=== PATIENT | male | born 1965 | race Caucasian/White ===

== ENCOUNTER 2016-11-21 19:41 | Emergency (ER) | payer OTHER ==
--- NOTE | ~2016-11-21 | CR72 ---
[facility] A Service of [facility] RADIOLOGY TEXT RESULTS PATIENT: GIA MENESES LOCATION: [facility] : 61 UNIT #: [id number] AGE: [address]: Harman Prince MD SEX: M ORDER DR: [id number] [facility] [address] [place], [place] [address] [id number] E MR#: [id number] Acc #: [id number] NAME: GIA MENESES. : 1965 SEX: M STUDY DATE/TIME: 11/21/2016 20:20 UNIT: [facility] ROOM: STUDY DESCRIPTION: CR Chest Single View Portable Attending Physician: Harman Prince Ordering Physician: Ed Doc Silvestre Lizarraga Primary Care Physician: Angel Montilla M.D. MEDICAL IMAGING REPORT This report is preliminary unless electronic signature is present EXAM Portable chest INDICATION Chest pain, left arm pain and left-sided facial droop today. COMPARISON 10/11/2012 FINDINGS The lungs are well expanded. There is no acute infiltrate. Heart size normal. Visualized osseous structures are unremarkable. IMPRESSION No active disease. Dictated by... Teofilo Martinez M.D. THIS IS AN ELECTRONICALLY VERIFIED REPORT Teofilo Martinez M.D. at 11/23/2016 7:27 AM CRISELDA/mitch TD: 11/22/2016 01:18 JOB #: [id number] MEDICAL IMAGING REPORT Page 1 of 1 COPY
--- NOTE | ~2016-11-21 | CT71 ---
[facility] A Service of [facility] RADIOLOGY TEXT RESULTS PATIENT: GIA MENESES LOCATION: [facility] : 61 UNIT #: [id number] AGE: [address]: Harman Prince MD SEX: M ORDER DR: [id number] [facility] [place], [place] [address] [id number] E MR#: [id number] Acc #: [id number] NAME: GIA MENESES. : 1965 SEX: M STUDY DATE/TIME: 11/21/2016 20:38 UNIT: [facility] ROOM: STUDY DESCRIPTION: CT Head Wo Contrast Attending Physician: Harman Prince Ordering Physician: Kris Lizarraga M.D. Primary Care Physician: Angel Montilla M.D. MEDICAL IMAGING REPORT This report is preliminary unless electronic signature is present EXAM CT head without contrast INDICATION Left-sided facial droop today, numbness left side of face and chest pain. TECHNIQUE CT of the head was performed without contrast. Comparison with 03/09/2015. This CT exam was performed with one or more of the following radiation dose reduction techniques: automatic exposure control, adjustment of mA and/or kV according to patient size, and iterative reconstruction. FINDINGS There is no evidence of intracranial hemorrhage, acute cortical-based infarction, focal mass lesion, or hydrocephalus. The included orbits and paranasal sinuses are unremarkable. The bone windows are unremarkable. IMPRESSION No acute intracranial abnormality. Dictated by... Teofilo Martinez M.D. THIS IS AN ELECTRONICALLY VERIFIED REPORT Teofilo Martinez M.D. at 11/23/2016 7:27 AM CRISELDA/mitch TD: 11/22/2016 02:35 JOB #: [id number] [facility] A Service [facility] RADIOLOGY TEXT RESULTS PATIENT: GIA MENESES LOCATION: [facility] : 61 UNIT #: [id number] AGE: [address]: Harman Prince MD SEX: M ORDER DR: MEDICAL IMAGING REPORT Page 1 of 1 COPY
--- NOTE | ~2016-11-21 | EKG ---
PATIENT: ZAIRA GENE UNIT #: [id number] Ventricular Rate: 90 BPM Atrial Rate: 90 BPM P-R Interval: 124 ms QRS Duration: 82 ms Q-T Interval: 356 ms QTC Calculation(Bezet): 435 ms P [place]: 80 degrees Calculated R [place]: 83 degrees Calculated T [place]: 75 degrees Diagnosis Line: Normal sinus rhythm Diagnosis Line: Normal ECG Diagnosis Line: No previous ECGs available Diagnosis Line: Confirmed by JESUS ADAMS MD ([id number]) on Diagnosis Line: 11/22/2016 1:31:56 PM INTERPRETING MD: ANGIE MAYES
[~2016-11-21 19:41] MED LIST: ACETAMINOPHEN650 M1; ASPIRIN81 M1; DOXYCYCLINE PO; LIBRIUM25 MG; NICOTINE1 EACH TD; NO MEDICATIONS; ROBITUSSIN ALL118 ML PO; ZOCOR20 MG
[2016-11-21 20:22] LABS: BASOPHIL% 0.6 % (0-2.5); EOSINOPHIL# 0.3 X10e3 (0-0.7); EOSINOPHIL% 4.4 % (0.0-7.0); HEMATOCRIT 42.9 % (38.0-50.0); HEMOGLOBIN 14.5 gm/dL (13.0-16.0); LYMPHOCYTE% 34.4 % (17.0-45.0); MEAN CELL VOLUME 91.6 FL (83-96); MEAN CORPUSCULAR HEMOGLOBIN 30.9 PG (28-34); MEAN CORPUSCULAR HGB CONC 33.8 g/dL (30-36); MEAN PLATELET VOLUME 9.1 FL (6.5-11.5); MONOCYTE# 0.5 X10e3 (0-1.0); MONOCYTE% 7.7 % (3.0-12.0); NEUTROPHIL# 3.1 X10e3 (1.5-7.1); NEUTROPHIL% 52.9 % (40-75); PLATELET COUNT 151 X10e3 (140-420); RED BLOOD COUNT 4.69 X10e (3.90-5.60); WHITE BLOOD COUNT 5.9 X10e3 (4.0-10.5)
[2016-11-21 20:25] LABS: DIFF IND NO
[2016-11-21 20:32] LABS: PARTIAL THROMBOPLASTIN TIME 26.3 SECONDS (23.5-31.3); PROTHROMBIN TIME (PATIENT) 10.2 SECONDS (9.6-11.5)
[2016-11-21 20:38] LABS: POC - CKMB <1.0 ng/mL (0.0-7.9); POC - TROPONIN <0.05 ng/mL (<=0.05)
[2016-11-21 20:48] LABS: ALBUMIN SERUM 3.9 g/dL (3.5-5.0); BILIRUBIN, DIRECT 0.1 mg/dL (0.0-0.2); BILIRUBIN,INDIRECT 0.4 mg/dL (0.0-0.9); BILIRUBIN,TOTAL 0.5 mg/dL (0.2-2.0); BUN/CREATININE RATIO 18.57; CALCIUM SERUM 9.4 mg/dL (8.4-10.2); CREATININE SERUM 0.7 mg/dL (0.6-1.4); GLOM FILT RATE Estimated 107.8 mL/min (>60); POTASSIUM 3.2 mmol/L (3.5-5.1)
[2016-11-21 22:00] LABS: POC - CKMB <1.0 ng/mL (0.0-7.9); POC - TROPONIN <0.05 ng/mL (<=0.05)
== END 2016-11-21 22:11 | disposition home or self-care (01) ==
LOC: CED 19:41
PROVIDERS: Emergency Medicine
DX: R20.2 Paresthesia of skin (principal); R07.9 Chest pain, unspecified; Z86.73 Personal history of transient ischemic attack (TIA), and cerebral infarction without residual deficits; Z90.49 Acquired absence of other specified parts of digestive tract; F17.210 Nicotine dependence, cigarettes, uncomplicated; Z79.82 Long term (current) use of aspirin; Z79.899 Other long term (current) drug therapy
CPT/HCPCS: 36415; 70450; 71010; 80048; 80076; 82553; 84484; 85025; 85610; 85730; 93005; 96360; 99284; G0480